=== PATIENT | female | born 2000 | race Caucasian/White ===

== ENCOUNTER 2022-06-03 16:59 | Emergency (ER) | payer BC ==
[2022-06-03] MEDS ORDERED: Dexamethasone 10 MG/ML VIAL ONE (17:41)
[2022-06-03] MEDS ORDERED: Ipratropium/Albuterol 3 ML NEB ONE (17:41)
== END 2022-06-03 18:54 | disposition home or self-care (01) ==
LOC: CSHERS 16:59
DX: J45.901 Unspecified asthma with (acute) exacerbation (principal)
CPT/HCPCS: 94640; 96372; J1100; J7620